=== PATIENT | male | born 1955 | race Caucasian/White ===

== ENCOUNTER → 2016-07-11 | Outpatient (CLI) | payer BC ==
[~2016-07-11] MED LIST: ALPR0.25 PO; ASPI81TA82 PO; ATOR-26 PO; CLOP1TAB15 PO; FAMO20TA11 PO; FERR325T18 PO; HYZ/10015 PO; ISOS30TA35 PO; METO25TA56 PO; POTA1TAB PO; SYN50 PO; ZLF/100 PO
== END | disposition home or self-care (01) ==
LOC: C.RDSM 12:57
PROVIDERS: ATTEND Physical Medicine & Rehabilitation Sports Medicine
DX: M25.561 Pain in right knee (principal); M25.562 Pain in left knee